=== PATIENT | female | born 1990 | race Caucasian/White ===

== ENCOUNTER 2019-04-06 11:22 | Emergency (ER) | payer SELFPAY ==
[2019-04-06 11:37] VITALS: BP 143/83
[2019-04-06] MEDS ORDERED: Ketorolac *IM* INJ* 60 MG/2 ML VIAL IM ONE (12:01)
--- NOTE | 2019-04-06 12:38 | ED ---
Headache - HPI Summary HPI Summary: 28-year-old white female presents with forehead laceration while running up the stairs last night in the dark. Patient also states that she is feels depressed due to recent separation with her but denies suicidal or homicidal ideation or plans. Patient complains of headache, mild photophobia and vomiting 1 episode before coming to the urgent care. - History Of Current Complaint Chief Complaint: UCLaceration Stated Complaint: S/P FALL HEAD LACERATION/DEPRESSION Time Seen by Provider: 04/06/19 11:41 Hx Last Menstrual Period: 04/01/19 Onset/Duration: Sudden Onset Initially Headache Was: Moderate Currently Pain Is: Moderate Timing: Constant Character: Sharp Location of Headache: Frontal Aggravating Factor: Nothing Allevating Factors: Nothing Associated Signs And Symptoms: Negative - Allergies/Home Medications Allergies/Adverse Reactions: Allergies Allergy/AdvReac Type Severity Reaction Status Date / Time morphine Allergy Rash Verified 04/06/19 11:37 Home Medications: Home Medications NK [No Home Medications Reported] 04/06/19 [History Confirmed 04/06/19] PMH/Surg Hx/FS Hx/Imm Hx Previously Healthy: No - Surgical History Surgery Procedure, Year, and Place: 2012, gallbladder removal Infectious Disease History: No Infectious Disease History: Denies: Traveled Outside the [place] in Last 30 Days - Family History Known Family History: Positive: Non-Contributory - Social History Alcohol Use: None Substance Use Type: Reports: None Smoking Status (MU): Light Every Day Tobacco Smoker Type: Cigarettes Amount Used/How Often: 5-6 cigarettes daily Length of Time of Smoking/Using Tobacco: 10 years Review of Systems Constitutional: Negative Positive: Photophobia ENT: Negative Cardiovascular: Negative Respiratory: Negative Positive: Vomiting, Nausea Genitourinary: Negative Musculoskeletal: Negative Skin: Other - forehead laceration Positive: Headache All Other Systems Reviewed And Are Negative: Yes Physical Exam - Summary Physical Exam Summary: Appearance: Positive: No Pain Distress Skin: Positive: Warm Head/Face: Positive: 1 cm left forehead laceration with small amount of subcutaneous tissue visualized. No bleeding or discharge. Eyes: :Normal ENT: Normal ENT inspection Neck: Positive: Supple Respiratory/Lung Sounds: Positive: Clear to Auscultation. Cardiovascular: Positive: Normal, RRR, S1, S2 Abdomen : soft, NT/ND Musculoskeletal: Positive: Normal, Strength/ROM Intact Neurological: Positive: CN 2-12 grossly intact Triage Information Reviewed: Yes Vital Signs On Initial Exam: Initial Vitals Temp Pulse Resp BP Pulse Ox 36.8 C 104 16 143/83 100 04/06/19 11:30 04/06/19 11:30 04/06/19 11:30 04/06/19 11:30 04/06/19 11:30 Procedures - Laceration/Wound Repair 1 Location: head Description: Linear Betadine Prep?: Yes Laceration/Wound Explored: clean Closure: Skin Adhesive Debridement: minimal Layer Closure?: No Sterile Dressing Applied?: No Diagnostics - Vital Signs Vital Signs Temp Pulse Resp BP Pulse Ox 04/06/19 11:30 36.8 C 104 16 143/83 100 - Laboratory Lab Statement: Any lab studies that have been ordered have been reviewed, and results considered in the medical decision making process. Headache Course/Dx - Course Assessment/Plan: Head laceration- dermabonded laceration with success. Patient eloped before CT results became available. Mailed DC papers - Diagnoses Provider Diagnoses: Laceration of forehead, Headache Discharge ED - Sign-Out/Discharge Documenting (check all that apply): Patient Departure All imaging exams completed and their final reports reviewed: No - PT ELOPED BEFORE CT HEAD RESULTS BECAME AVAILABLE - Discharge Plan Condition: Stable Disposition: ELOPEMENT Patient Education Materials: Skin Adhesive Care (ED) Referrals: No Primary Care Phys,NOPCP [Primary Care Provider] - Additional Instructions: CT head was negative for bleeding. Please follow-up with mental health counseling and/or family counseling Center for your depression. - Billing Disposition and Condition Condition: STABLE Disposition: Elopement
--- NOTE | 2019-04-07 10:11 | UC ---
- Progress Note Progress Note: IMPRESSION: #. No CT evidence for traumatic brain injury. #. Mild RIGHT frontal forehead edema. No loculated hematoma or subcutaneous emphysema evident. Course/Dx - Diagnoses Provider Diagnoses: Laceration of forehead, Headache Discharge ED - Sign-Out/Discharge Documenting (check all that apply): Post-Discharge Follow Up All imaging exams completed and their final reports reviewed: Yes - PT ELOPED BEFORE CT HEAD RESULTS BECAME AVAILABLE - Discharge Plan Condition: Stable Disposition: ELOPEMENT Patient Education Materials: Skin Adhesive Care (ED) Referrals: No Primary Care Phys,NOPCP [Primary Care Provider] - Additional Instructions: CT head was negative for bleeding. Please follow-up with mental health counseling and/or family counseling Center for your depression. - Billing Disposition and Condition Condition: STABLE Disposition: Elopement
== END 2019-04-06 12:32 | disposition home or self-care (01) ==
LOC: UCCORT 11:22
DX: S01.81XA Laceration without foreign body of other part of head, initial encounter (principal); X58.XXXA Exposure to other specified factors, initial encounter; Y92.9 Unspecified place or not applicable; R51 Headache; Z88.5 Allergy status to narcotic agent; F17.210 Nicotine dependence, cigarettes, uncomplicated
CPT/HCPCS: 12011; 70450; 96372; 99212; G0463; J1885

== ENCOUNTER 2023-03-01 06:43 | Observation (INO) ==
[~2023-03-01 06:43] MED LIST: Buffered Lidocaine 1% SYRIN 1 ml INTRADERM ONE; Lactated Ringers 1000 ml BAG 1,000 ML IV SCH
[2023-03-01] MEDS ORDERED: Chlorhexidine MOUTHWASH 0.12% 15 ML UDC ONE (06:50)
[2023-03-01] MEDS ORDERED: ceFAZolin 2 GM in NS PREMIX 2 GM/100 ML BAG IVPB ONE (07:05)
[2023-03-01 07:21] LABS: Rapid COVID-19 Molecular Undetected (Undetected)
[2023-03-01] MEDS ORDERED: Lidocaine 2% PF 5 ML VIAL ONE (07:53)
[2023-03-01] MEDS ORDERED: Phenylephrine IV 10 MG/ML 1 ml VIAL ONE (07:53)
[2023-03-01] MEDS ORDERED: fentaNYL 100 mcg/2 ml 50 MCG/ML VIAL ONE ×2 (07:54→09:51)
[2023-03-01] MEDS ORDERED: Propofol 10 MG/ML 20 ML BTL ONE (07:54)
[2023-03-01] MEDS ORDERED: Rocuronium 50 mg VIAL 10 mg/ml 5 ml VIAL (50 mg) ONE ×2 (07:54→09:23)
[2023-03-01] MEDS ORDERED: Midazolam 2 mg/2 ml VIAL 1 mg/ml 2 ml VIAL (2 mg) ONE (07:55)
[2023-03-01] MEDS ORDERED: Thrombin 5,000 UNITS 1 APPLIC KIT - topical use - TOPICAL ONE (08:06)
[2023-03-01] MEDS ORDERED: Lidocaine 1% w EPI 1:100,000 MDV 20 ML VIAL ONE (08:06)
[2023-03-01] MEDS ORDERED: ceFAZolin VIAL VIAL ONE (08:06)
[2023-03-01] MEDS ORDERED: Gelfoam Sponge SIZE 100 SPONGE ONE (08:07)
[2023-03-01] MEDS ORDERED: HYDROmorphone 0.5 MG/0.5 ML SYRINGE ONE (09:10)
[2023-03-01] MEDS ORDERED: Dexamethasone IV 4 MG/ML VIAL 1 ml VIAL ONE (09:11)
[2023-03-01] MEDS ORDERED: Ondansetron 4 mg VIAL 2 MG/ML 2 ml VIAL ONE (09:11)
[2023-03-01] MEDS ORDERED: fentaNYL 100 mcg/2 ml 50 MCG/ML VIAL IV PRN (09:28)
[2023-03-01] MEDS ORDERED: Ondansetron 4 mg VIAL 2 MG/ML 2 ml VIAL IV PRN ×2 (09:28→10:34)
[2023-03-01] MEDS ORDERED: HYDROmorphone 1 MG/1 ML SYRINGE IV PRN (09:28)
[2023-03-01] MEDS ORDERED: Naloxone 0.4 mg VIAL 0.4 mg/ml 1 ml VIAL IV PRN (09:28)
[2023-03-01] MEDS ORDERED: KETAMINE HCL 10 MG/ML 20 ml VIAL (200 MG) ONE (09:31)
[2023-03-01] MEDS ORDERED: Propofol 1,000 MG/100 ML BTL ONE (09:56)
[2023-03-01] MEDS ORDERED: Labetalol IV 5 MG/ML 20 ml VIAL ONE (10:16)
[2023-03-01] MEDS ORDERED: Calcium Carb (TUMS) 500 mg CHEW TAB PO PRN (10:34)
[2023-03-01] MEDS ORDERED: Morphine 2 MG/ML SYRINGE IV PRN (10:34)
[2023-03-01] MEDS ORDERED: Senna TAB 8.6 mg TAB PO PRN (10:34)
[2023-03-01] MEDS ORDERED: HYDROcodone/ACETAMIN 5/325 mg TAB PO PRN (10:34)
[2023-03-01] MEDS ORDERED: Benzocaine/Menthol LOZ PO PRN (10:39)
[2023-03-01] MEDS ORDERED: Aspirin EC 81 mg TAB.EC (enteric coated) PO SCH (14:00)
[2023-03-01] MEDS: Lactated Ringers 1000 ml BAG 1,000 ML IV SCH (15:49)
[2023-03-02] MEDS: HYDROcodone/ACETAMIN 5/325 mg TAB PO PRN ×2 (02:04→09:26)
[2023-03-02 05:18] VITALS: BP 115/71
[2023-03-02] MEDS: Lactated Ringers 1000 ml BAG 1,000 ML IV SCH (05:21)
[2023-03-02] MEDS ORDERED: Aspirin EC 81 mg TAB.EC (enteric coated) PO SCH (09:00)
== END 2023-03-02 10:30 | disposition home or self-care (01) ==
LOC: SSU 06:43 → OR 06:43
PROVIDERS: ADMIT Neurological Surgery; ATTEND Neurological Surgery